=== PATIENT | female | born 1965 | race African-American/Black ===

== ENCOUNTER 2018-09-21 05:49 | Day surgery (SDC) | payer MEDICAID ==
[~2018-09-21] VITALS: Ht 165.1 cm; Wt 85.5 kg
[2018-09-21] MEDS ORDERED: LIDOCAINE 4% 50 ML SOLUTION TP ONE (05:50)
[2018-09-21] MEDS ORDERED: ALBUTEROL SULFATE 2.5 MG/0.5 ML NEB SOLUTION NEB ONE (05:50)
[2018-09-21] MEDS ORDERED: BENZOCAINE 20% 50 MCG/SPRAY 57 GM TP ONE (05:50)
[2018-09-21] MEDS ORDERED: LIDOCAINE 2% 30 ML JELLY TP ONE (05:50)
[2018-09-21] MEDS ORDERED: SODIUM CHLORIDE 0.9% 1,000 ML IV ONE ×2 (06:02→06:30)
[2018-09-21] MEDS ORDERED: DARU1TAB PO (06:51)
[2018-09-21] MEDS ORDERED: ABAC1TAB3 PO (06:51)
[2018-09-21] MEDS ORDERED: MIDAZOLAM HCL 2 MG/2 ML VIAL ONE (07:59)
[2018-09-21] MEDS ORDERED: FentaNYL CITRATE-PF 100 MCG/2 ML VIAL ONE (08:00)
[2018-09-21] MEDS ORDERED: MethylPREDNISolone SOD SUCC 125 MG/2 ML VIAL IVP ONE (09:00)
[2018-09-21] MEDS ORDERED: MethylPREDNISolone SOD SUCC 125 MG/2 ML VIAL ONE (09:08)
[2018-09-21] MEDS ORDERED: OXYGEN THERAPY IH SCH (20:00)
== END 2018-09-21 10:45 | disposition home or self-care (01) ==
LOC: SURGERY 05:49
PROVIDERS: ATTEND Internal Medicine Critical Care Medicine
DX: J38.4 Edema of larynx (principal); J44.9 Chronic obstructive pulmonary disease, unspecified; F17.210 Nicotine dependence, cigarettes, uncomplicated; Z98.890 Other specified postprocedural states; Z88.2 Allergy status to sulfonamides; Z91.013 Allergy to seafood
CPT/HCPCS: 31623; 31624; 31625; 71045; 87015; 87070; 87101; 87205; 87206; 87220; J2250; J2930; J3010; J7030